=== PATIENT | female | born 2000 | race Caucasian/White ===

== ENCOUNTER 2023-02-25 19:08 | Emergency (ER) | payer OTHER ==
[~2023-02-25] VITALS: Ht 149.9 cm; Wt 45.4 kg
[2023-02-26] MEDS ORDERED: ORASEP SPRAY30 ML MM (01:00)
== END 2023-02-26 01:38 ==
LOC: EMR PED 19:08
PROVIDERS: Emergency Medicine Pediatric Emergency Medicine
DX: B34.9 Viral infection, unspecified (principal)